=== PATIENT | female | born 1970 | race Caucasian/White ===

== ENCOUNTER 2020-05-24 20:46 | Emergency (ER) | payer OTHER, SELFPAY ==
[2020-05-24 20:48] VITALS: BP 140/86; PULSE 87; RESP 16; TEMP 36; O2SAT 98; BMI 23.2
--- NOTE | 2020-05-24 20:56 | ED.RN ---
CALLED EPI FROM [facility] TO TEST THIS PT
[2020-05-24 21:10] VITALS: O2SAT 98
--- NOTE | 2020-05-24 21:23 | RAD_ITS ---
STUDY: X-RAY - UNILATERAL RIBS ( LEFT ) WITH CHEST REASON FOR EXAM: Female, 50 years old. sob TECHNIQUE - RIBS: 2 view(s) of the ribs. TECHNIQUE - CHEST: COMPARISON: None. FINDINGS - RIBS: Old fractures of the lateral left fifth, sixth and seventh ribs. Old fractures of the 11th and 10th ribs. Negative for new fracture deformity. FINDINGS - CHEST: Negative for pneumothorax. The lungs are clear and expanded. There is no demonstrated pleural abnormality. Normal size heart. Normal mediastinum and ethan. Normal visualized pulmonary arteries. There is atherosclerotic calcification of the aortic arch . Mild degenerative changes of the thoracic spine. Normal clavicles, scapulae and proximal humeri. There is no demonstrated abnormality of the visualized soft tissue structures of the upper abdomen. RAD/Ribs Uni Min 3V w/PA Chest IMPRESSION: RIBS: Negative for new fracture deformity. Old rib fractures on the left of the fifth, sixth, seventh, 11th and 10th ribs. CHEST: No acute cardiopulmonary findings. Negative for consolidation, infiltrates, pleural effusion or pneumothorax. Normal cardiac size. Mild atherosclerotic changes of the aorta. Electronically Signed: Elana Mike MD at 21:46 EST , Service support ,
--- NOTE | 2020-05-24 22:24 | ED.DEP ---
ED Disposition - Plan for ED Patient: Instructions: ED Strain Chest Wall Prescriptions: cycloBENZAPRine HCl [Flexeril] 10 mg PO TID PRN #20 tab PRN Reason: Muscle Spasm Prescription Printed Naproxen [Naprosyn] 500 mg PO BID PRN #20 tab Prescription Printed Referrals: Brennan Callahan MD [Primary Care Provider] -
[2020-05-24] MEDS: Naproxen 500 MG Tablet PO (22:31)
[2020-05-24 22:33] VITALS: BP 144/79; PULSE 72; RESP 18; O2SAT 97
--- NOTE | 2020-05-24 22:36 | ED.DEP ---
ED Disposition - Plan for ED Patient: Instructions: ED Strain Chest Wall Prescriptions: cycloBENZAPRine HCl [Flexeril] 10 mg PO TID PRN #20 tab PRN Reason: Muscle Spasm Prescription Printed Naproxen [Naprosyn] 500 mg PO BID PRN #20 tab Prescription Printed Referrals: Brennan Callahan MD [Primary Care Provider] - [facility] [GROUP OF PHYSICIANS] -
--- NOTE | 2020-05-24 22:38 | ED.VISSUMM ---
- ER Visit Summary Date of Service: 05/24/20 Chief Complaint: Left rib pain History of Present Illness: The patient is a 50 F presenting with left-sided rib pain. Patient states she was at work. She was reaching for a box above her head. She felt a pop in her left ribs. She denies other injuries or complaints. Physical Examination: Vitals are stable. Patient is afebrile. Alert no acute distress. HEENT exam is unremarkable. Neck is supple. Lungs are clear and equal bilaterally. Left lateral chest wall tenderness with no crepitus Heart is regular rate and rhythm. Abdomen is soft nontender nondistended. No guarding or rebound Extremities are unremarkable. Skin is warm and dry. Remainder of exam is unremarkable. Emergency Department Course and Treatment: Left rib series shows RIBS: Negative for new fracture deformity. Old rib fractures on the left of the fifth, sixth, seventh, 11th and 10th ribs. CHEST: No acute cardiopulmonary findings. Negative for consolidation, infiltrates, pleural effusion or pneumothorax. Normal cardiac size. Mild atherosclerotic changes of the aorta. Patient will be driving home. She was given Naprosyn. She is given prescription for Naprosyn and Flexeril. She was given incentive spirometer. Advised to follow-up with replaced by [facility]. Advised return to the ED for worsening complaints. Disposition: Discharge home Impression: Chest wall strain This note was generated with [employer] dictation software. It may contain incorrect words, spelling, and punctuation that were not noted in review of the chart prior to signing ED Disposition - Plan for ED Patient: Instructions: ED Strain Chest Wall Prescriptions: cycloBENZAPRine HCl [Flexeril] 10 mg PO TID PRN #20 tab PRN Reason: Muscle Spasm Prescription Printed Naproxen [Naprosyn] 500 mg PO BID PRN #20 tab Prescription Printed Referrals: [facility] [GROUP OF PHYSICIANS] - Brennan Callahan MD [Primary Care Provider] -
== END 2020-05-24 22:48 | disposition home or self-care (01) ==
PROVIDERS: Emergency Provider Emergency Medicine; PCP Family Medicine
DX: S29.011A Strain of muscle and tendon of front wall of thorax, initial encounter (principal); X50.0XXA Overexertion from strenuous movement or load, initial encounter; Y93.9 Activity, unspecified; Y92.89 Other specified places as the place of occurrence of the external cause; Y99.0 Civilian activity done for income or pay; K21.9 Gastro-esophageal reflux disease without esophagitis; Z72.0 Tobacco use
CPT/HCPCS: 71101; 94760; 99283

== ENCOUNTER 2023-08-12 13:55 | Outpatient (RCR) | payer BC, SELFPAY ==
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
--- NOTE | 2023-08-14 12:36 | HP.OTFCE.D ---
FCE D/C Summary Discharge text: JENNIFER ACOSTA was seen for a one time visit for an FCE on 08/12/23 and is discharged.
== END 2023-08-12 19:00 | disposition home or self-care (01) ==
LOC: OT 13:55
PROVIDERS: PCP Family Medicine
DX: S22.31XD Fracture of one rib, right side, subsequent encounter for fracture with routine healing (principal)
CPT/HCPCS: 97750